=== PATIENT | female | born 1960 | race Caucasian/White ===

== ENCOUNTER 2016-07-15 16:12 | Emergency (ER) | payer OTHER ==
[~2016-07-15] VITALS: Ht 170.2 cm; Wt 97.2 kg
[~2016-07-15 16:12] MED LIST: ADVIL200 MG PO; AMOXICILLIN500 MG PO; ATARAX,VISTARIL25 MG PO; BENADRYL ALLERG25 MG PO; BENADRYL50 MG PO; CHERATUSSIN AC473 ML PO; CLONAZEPAM0.5 MG PO; CLONAZEPAM1 MG PO; ELAVIL10 MG PO; FIORICET 50-301 EACH PO; FIORICET,ESG1 TABLET PO; FIORINAL 50-321 EACH PO; FLEXERIL10 MG PO; GABAPENTIN100 MG PO; HYCODAN SYRUP480 ML PO; HYDROCHLOROTHIA25 MG PO; HYDROCODON-ACE1 EAC2; HYDROCODON-ACE1 EAC5 PO; HYDROCODON-ACE1 EAC7 PO; IBUPROFEN600 MG PO; KEFLEX500 MG PO; KLONOPIN0.5 MG PO; KLONOPIN1 MG PO; KLONOPIN2 MG; LEVOTHYROXINE150 MCG PO; LYRICA75 MG PO; MECLIZINE HCL12.5 M1 PO; MOTRIN400 MG PO; MOTRIN600 MG PO; MOTRIN800 MG PO; NAPROSYN500 MG PO; NORCO 10/3251 TABLET PO; NORCO 5/3251 TABLET PO; OMEPRAZOLE40 M1 PO; ONDANSETRON ODT4 MG PO; OXAYDO5 MG PO; OXYCODONE HCL5 MG PO; PERCOCET 5/31 TABLET PO; PHENERGAN25 MG PR; PLAVIX75 MG PO; PRAVASTATIN SOD40 MG PO; PREDNISONE20 MG PO; PROMETHAZINE HC25 M1 PO; PROZAC40 MG PO; SEROQUEL XR400 MG PO; SEROQUEL400 MG PO; SYNTHROID137 MCG PO; SYNTHROID75 MCG PO; TESSALON200 MG PO; TIROSINT150 MCG PO; TYLENOL REGULA325 MG PO; VENTOLIN HFA18 GM IH; VIBRAMYCIN100 MG PO; VISTARIL50 MG PO; XANAX0.5 MG PO; XARELTO10 MG PO; XARELTO20 MG PO; ZOFRAN4 MG PO
[2016-07-15 18:01] LABS: HEMATOCRIT 40.2 % (36.0-46.0); MCH 29.2 PG (29.0-34.0); MCHC 33.8 G/DL (30.0-36.0); MCV 86.5 FL (83-99); MEAN PLAT.VOLUME 10.8 uM^3 (9.5-12.4); PLATELET COUNT 225 K/uL (156-360); RBC DIS.WIDTH-CV 15.5 % (11.8-14.6); RBC DIS.WIDTH-SD 48.5 % (39-53); RED BLOOD COUNT 4.65 M/uL (3.80-5.20); WHITE BLOOD COUNT 8.5 K/uL (4.1-10.2)
[2016-07-15 18:13] LABS: CHLORIDE 111 mEq/L (99-109); POTASSIUM 3.9 mEq/L (3.7-5.4); SODIUM 142 mEq/L (136-147)
[2016-07-15 18:15] LABS: D-DIMER ELISA 0.29 mg/L FEU (< 0.57); GLUCOSE 95 mg/dL (70-99); PROTHROMBIN TIME 10.6 (9.2-11.2); PTT 25.4 (25-32)
[2016-07-15 18:17] LABS: ANION GAP 9 MEQ/L (2-14)
[2016-07-15 18:19] LABS: GFR ESTIMATE (CALCULATED) > 59 mL/min/
[2016-07-15 18:20] LABS: UREA NITROGEN (BUN) 17 mg/dL (9-23)
[2016-07-15 19:23] LABS: CREATINE KINASE 71 IU/L (1-294)
[2016-07-15] MEDS ORDERED: VIBRAMYCIN100 MG PO (19:38)
[2016-07-15 20:00] VITALS: BP 157/88
== END 2016-07-15 20:00 | disposition home or self-care (01) ==
LOC: EME 16:12
PROVIDERS: Physician Assistant
DX: M79.605 Pain in left leg (principal); L03.116 Cellulitis of left lower limb; Z91.19 Patient's noncompliance with other medical treatment and regimen; F41.9 Anxiety disorder, unspecified; I10 Essential (primary) hypertension; E07.9 Disorder of thyroid, unspecified; Z86.718 Personal history of other venous thrombosis and embolism; F17.200 Nicotine dependence, unspecified, uncomplicated
CPT/HCPCS: 80048; 82550; 85027; 85379; 85610; 85730; 93005; 93971; 99281; 99284; J3010

== ENCOUNTER 2016-09-29 12:43 | Emergency (ER) | payer OTHER ==
[~2016-09-29] VITALS: Ht 170.2 cm; Wt 100.0 kg
[2016-09-29] MEDS ORDERED: PEN-VEE K,VEET500 MG PO (13:08)
[2016-09-29] MEDS ORDERED: ZOFRAN ODT4 MG PO (13:22)
[2016-09-29] MEDS ORDERED: PERCOCET 5/31 TABLET PO (13:22)
[2016-09-29 14:06] VITALS: BP 128/77
== END 2016-09-29 14:22 | disposition home or self-care (01) ==
LOC: EME 12:43
DX: K03.81 Cracked tooth (principal); I10 Essential (primary) hypertension; Z86.718 Personal history of other venous thrombosis and embolism; Z72.0 Tobacco use
CPT/HCPCS: 99281; 99283

== ENCOUNTER 2016-10-05 18:04 | Inpatient (IN) | payer OTHER ==
[~2016-10-05] VITALS: Ht 170.2 cm; Wt 99.5 kg
[~2016-10-05 18:04] MED LIST changes: +PEN-VEE K,VEET500 MG PO; +ZOFRAN ODT4 MG PO
[2016-10-05 18:31] LABS: HEMATOCRIT 40.4 % (36.0-46.0); MCH 28.8 PG (29.0-34.0); MCHC 32.2 G/DL (30.0-36.0); MCV 89.4 FL (83-99); MEAN PLAT.VOLUME 9.8 uM^3 (9.5-12.4); PLATELET COUNT 264 K/uL (156-360); RBC DIS.WIDTH-CV 12.6 % (11.8-14.6); RBC DIS.WIDTH-SD 41.4 % (39-53); RED BLOOD COUNT 4.52 M/uL (3.80-5.20)
[2016-10-05 18:44] LABS: CHLORIDE 112 mEq/L (99-109); POTASSIUM 3.5 mEq/L (3.7-5.4); SODIUM 140 mEq/L (136-147)
[2016-10-05 18:47] LABS: GLUCOSE 155 mg/dL (70-99)
[2016-10-05 18:48] LABS: ANION GAP 10 MEQ/L (2-14); TOTAL BILIRUBIN 0.2 mg/dL (0.0-1.0)
[2016-10-05 18:49] LABS: SERUM ETHYL ALCOHOL < 10 mg/dL
[2016-10-05 18:50] LABS: GFR ESTIMATE (CALCULATED) > 59 mL/min/
[2016-10-05 18:51] LABS: ALKALINE PHOSPHATASE 80 IU/L (3-129)
[2016-10-05 18:52] LABS: UREA NITROGEN (BUN) 25 mg/dL (9-23)
[2016-10-05 18:54] LABS: SALICYLATE < 5.0 MG/DL (15-30)
[2016-10-05 19:30] LABS: ADD MIUA? NO; BILIRUBIN NEGATIVE; BLOOD NEGATIVE; COLOR YELLOW ((YELLOW)); GLUCOSE (STRIP) NEGATIVE; KETONES NEGATIVE; LEUKOCYTES NEGATIVE; NITRITE NEGATIVE; PROTEIN (STRIP) NEGATIVE; SPECIFIC GRAVITY 1.021 (1.000-1.030); UROBILINOGEN 0.2 MG/DL (0.2-1.0)
[2016-10-05 19:53] LABS: AMPHETAMINE NEGATIVE (500 ng/mL); BARBITURATES NEGATIVE (200 ng/mL); BENZODIAZEPINES PRESUMPTIVE POSITIVE (150 ng/mL); COCAINE NEGATIVE (150 ng/mL); INTERNAL CONTROLS VALID? YES; METHADONE NEGATIVE (200 ng/mL); METHAMPHETAMINE NEGATIVE (500 ng/mL); OPIATES (MORPHINE) NEGATIVE (100 ng/mL); OXYCODONE NEGATIVE (100 ng/mL); PHENCYCLIDINE NEGATIVE (25 ng/mL); PROPOXYPHENE NEGATIVE (300 ng/mL); THC CANNABINOIDS NEGATIVE (50 ng/mL); TRICYCLIC ANTIDEPRESSANTS NEGATIVE (300 ng/mL)
[2016-10-05 19:59] LABS: ADD MEDTOX COMMENT Y
[2016-10-05 20:25] LABS: BENZODIAZEPINES, URINE SCREEN POSITIVE (200 ng/mL)
[2016-10-05] MEDS ORDERED: CLONAZEPAM1 MG PO (22:43)
[2016-10-05] MEDS ORDERED: LISINOPRIL20 MG PO (22:43)
[2016-10-05] MEDS ORDERED: SIMVASTATIN20 MG PO (22:44)
[2016-10-05] MEDS ORDERED: HYDROXYZINE PAM50 MG PO (22:47)
[2016-10-05] MEDS ORDERED: IBUPROFEN800 MG PO (22:48)
[2016-10-06 01:11] VITALS: BP 122/58
[2016-10-06 07:53] VITALS: BP 112/55
[2016-10-06 15:52] VITALS: BP 117/58
[2016-10-07 08:12] VITALS: BP 143/85
[2016-10-07 15:44] VITALS: BP 140/78
[2016-10-08 07:54] VITALS: BP 117/77
== END 2016-10-08 13:19 | disposition home or self-care (01) | DRG 885 ==
LOC: EME 18:04 → 1WEST 23:44 → EDOF 23:44 → 1WEST 23:44
PROVIDERS: Emergency Medicine
DX: F33.9 Major depressive disorder, recurrent, unspecified (principal); F13.10 Sedative, hypnotic or anxiolytic abuse, uncomplicated; T42.4X2A Poisoning by benzodiazepines, intentional self-harm, initial encounter; F11.10 Opioid abuse, uncomplicated; F41.9 Anxiety disorder, unspecified; I10 Essential (primary) hypertension; E03.9 Hypothyroidism, unspecified; R41.83 Borderline intellectual functioning; G89.29 Other chronic pain; M54.9 Dorsalgia, unspecified; E78.5 Hyperlipidemia, unspecified; G43.909 Migraine, unspecified, not intractable, without status migrainosus; I87.2 Venous insufficiency (chronic) (peripheral); F17.200 Nicotine dependence, unspecified, uncomplicated; Z91.5 Personal history of self-harm; Z86.718 Personal history of other venous thrombosis and embolism; Z91.040 Latex allergy status; Z88.0 Allergy status to penicillin; Z79.01 Long term (current) use of anticoagulants
CPT/HCPCS: 80053; 81003; 84999; 85027; 90837; 93005; 93971; 97150 GO; 97165 GO; 99281; 99285; G0480; J7030; Q0177

== ENCOUNTER 2016-11-02 17:52 | Emergency (ER) | payer OTHER ==
[~2016-11-02] VITALS: Ht 170.2 cm; Wt 101.5 kg
[~2016-11-02 17:52] MED LIST changes: +HYDROXYZINE PAM50 MG PO; +IBUPROFEN800 MG PO; +LISINOPRIL20 MG PO; +SIMVASTATIN20 MG PO
[2016-11-02] MEDS ORDERED: VENTOLIN HFA18 GM IH (19:08)
[2016-11-02] MEDS ORDERED: TRAMADOL HCL50 MG PO (19:08)
[2016-11-02 19:20] VITALS: BP 128/81
== END 2016-11-02 19:20 | disposition home or self-care (01) ==
LOC: EME 17:52
DX: K08.89 Other specified disorders of teeth and supporting structures (principal); F17.200 Nicotine dependence, unspecified, uncomplicated; J20.9 Acute bronchitis, unspecified
CPT/HCPCS: 94664; 99281; 99284

== ENCOUNTER 2016-11-03 18:07 | Emergency (ER) | payer OTHER ==
[~2016-11-03] VITALS: Ht 170.2 cm; Wt 99.1 kg
[~2016-11-03 18:07] MED LIST changes: +TRAMADOL HCL50 MG PO
[2016-11-03 22:59] VITALS: BP 141/73
== END 2016-11-03 23:00 | disposition home or self-care (01) ==
LOC: EME 18:07
DX: S09.90XA Unspecified injury of head, initial encounter (principal); S90.32XA Contusion of left foot, initial encounter; Y04.2XXA Assault by strike against or bumped into by another person, initial encounter; Y07.03 Male partner, perpetrator of maltreatment and neglect; E78.5 Hyperlipidemia, unspecified; I10 Essential (primary) hypertension; F17.200 Nicotine dependence, unspecified, uncomplicated; Z86.718 Personal history of other venous thrombosis and embolism
CPT/HCPCS: 70450; 73630; 99281; 99284

== ENCOUNTER 2016-11-10 14:22 | Inpatient (IN) | payer OTHER ==
[~2016-11-10] VITALS: Ht 170.2 cm; Wt 102.4 kg
[2016-11-10 15:21] LABS: HEMATOCRIT 37.6 % (36.0-46.0); MCHC 33.2 G/DL (30.0-36.0); MCV 87.2 FL (83-99); MEAN PLAT.VOLUME 9.8 uM^3 (9.5-12.4); PLATELET COUNT 261 K/uL (156-360); RBC DIS.WIDTH-CV 13.5 % (11.8-14.6); RBC DIS.WIDTH-SD 43.1 % (39-53); RED BLOOD COUNT 4.31 M/uL (3.80-5.20)
[2016-11-10 15:31] LABS: CHLORIDE 115 mEq/L (99-109); POTASSIUM 3.8 mEq/L (3.7-5.4); SODIUM 145 mEq/L (136-147)
[2016-11-10 15:33] LABS: GLUCOSE 96 mg/dL (70-99)
[2016-11-10 15:34] LABS: ANION GAP 10 MEQ/L (2-14)
[2016-11-10 15:36] LABS: SERUM ETHYL ALCOHOL < 10 mg/dL
[2016-11-10 15:37] LABS: GFR ESTIMATE (CALCULATED) > 59 mL/min/
[2016-11-10 15:39] LABS: UREA NITROGEN (BUN) 21 mg/dL (9-23)
[2016-11-10 15:40] LABS: SALICYLATE < 5.0 MG/DL (15-30)
[2016-11-10 15:50] LABS: ADD MEDTOX COMMENT Y; AMPHETAMINE NEGATIVE (500 ng/mL); BARBITURATES PRESUMPTIVE POSITIVE (200 ng/mL); BENZODIAZEPINES PRESUMPTIVE POSITIVE (150 ng/mL); COCAINE NEGATIVE (150 ng/mL); INTERNAL CONTROLS VALID? YES; METHADONE NEGATIVE (200 ng/mL); METHAMPHETAMINE NEGATIVE (500 ng/mL); OPIATES (MORPHINE) PRESUMPTIVE POSITIVE (100 ng/mL); OXYCODONE NEGATIVE (100 ng/mL); PHENCYCLIDINE NEGATIVE (25 ng/mL); PROPOXYPHENE NEGATIVE (300 ng/mL); THC CANNABINOIDS NEGATIVE (50 ng/mL); TRICYCLIC ANTIDEPRESSANTS NEGATIVE (300 ng/mL)
[2016-11-10] MEDS ORDERED: BUTALB-APAP-CA1 EACH PO (16:59)
[2016-11-10 17:19] LABS: BENZODIAZEPINES, URINE SCREEN POSITIVE (200 ng/mL); OPIATES QUANTITATIVE VALUE 0 NG/ML
[2016-11-10 17:41] VITALS: BP 137/83
[2016-11-11 07:50] VITALS: BP 148/90
[2016-11-11 15:36] VITALS: BP 153/76
[2016-11-12 08:28] VITALS: BP 130/72
[2016-11-12 15:28] VITALS: BP 142/57
[2016-11-13 07:36] VITALS: BP 135/82
[2016-11-13 15:29] VITALS: BP 132/66
[2016-11-14 07:33] VITALS: BP 107/60
[2016-11-14 15:44] VITALS: BP 132/62
[2016-11-15 07:54] VITALS: BP 105/64
[2016-11-15] MEDS ORDERED: DIVALPROEX SOD250 MG PO (09:28)
[2016-11-15] MEDS ORDERED: TRAZODONE HCL50 MG PO (09:28)
[2016-11-15] MEDS ORDERED: FLUOXETINE HCL20 MG PO (09:28)
== END 2016-11-15 12:45 | disposition home or self-care (01) | DRG 881 ==
LOC: EME 14:22 → 1WEST 16:10 → EDOF 16:10 → 1WEST 17:26
PROVIDERS: Emergency Medicine
DX: F32.9 Major depressive disorder, single episode, unspecified (principal); F13.20 Sedative, hypnotic or anxiolytic dependence, uncomplicated; F20.9 Schizophrenia, unspecified; R45.851 Suicidal ideations; F43.20 Adjustment disorder, unspecified; F70 Mild intellectual disabilities; E03.9 Hypothyroidism, unspecified; I10 Essential (primary) hypertension; Z86.718 Personal history of other venous thrombosis and embolism; Z59.0 Homelessness; F39 Unspecified mood [affective] disorder
CPT/HCPCS: 73610; 80048; 84999; 85027; 90837; 93971; 94640; 94640 76; 97150 GO; 97165 GO; 99202; 99281; 99285; G0480; Q0177

== ENCOUNTER 2017-01-11 16:25 | Day surgery (SDC) | payer OTHER ==
[~2017-01-11] VITALS: Ht 170.2 cm; Wt 101.3 kg
[~2017-01-11 16:25] MED LIST changes: +BUTALB-APAP-CA1 EACH PO; +DIVALPROEX SOD250 MG PO; +FLUOXETINE HCL20 MG PO; +TRAZODONE HCL50 MG PO
[2017-01-11 17:04] LABS: BASOPHIL COUNT 0.1 K/uL (0-0.1); EOSINOPHIL (%) 11.9 % (0-5); EOSINOPHIL COUNT 1.1 K/uL (0-0.3); HEMATOCRIT 41.2 % (36.0-46.0); IMMATURE GRANULOCYTE (%) 0.2 % (0.0-0.7); INSTRUMENT ABS NEUTROPHIL CT 3.7 K/uL; LYMPHOCYTE COUNT 3.5 K/uL (1.0-2.8); MCH 28.4 PG (29.0-34.0); MCHC 31.8 G/DL (30.0-36.0); MCV 89.2 FL (83-99); MEAN PLAT.VOLUME 9.9 uM^3 (9.5-12.4); MONOCYTE (%) 6.2 % (3-12); MONOCYTE COUNT 0.6 K/uL (0-0.8); NEUTROPHIL (%) 41.4 % (45-76); NEUTROPHIL COUNT 3.7 K/uL (1.8-6.4); PLATELET COUNT 239 K/uL (156-360); RBC DIS.WIDTH-CV 13.6 % (11.8-14.6); RBC DIS.WIDTH-SD 44.3 % (39-53); RED BLOOD COUNT 4.62 M/uL (3.80-5.20); WHITE BLOOD COUNT 8.9 K/uL (4.1-10.2)
[2017-01-11 17:12] LABS: CHLORIDE 110 mEq/L (99-109); POTASSIUM 4.6 mEq/L (3.7-5.4); SODIUM 144 mEq/L (136-147)
[2017-01-11 17:14] LABS: GLUCOSE 92 mg/dL (70-99)
[2017-01-11 17:15] LABS: ANION GAP 10 MEQ/L (2-14)
[2017-01-11 17:18] LABS: GFR ESTIMATE (CALCULATED) > 59 mL/min/
[2017-01-11 17:19] LABS: UREA NITROGEN (BUN) 14 mg/dL (9-23)
[2017-01-11] MEDS ORDERED: DIVALPROEX SOD125 M1 PO (23:32)
[2017-01-12 01:30] VITALS: BP 112/70
[2017-01-12 09:30] VITALS: BP 111/60
[2017-01-12 11:10] VITALS: BP 99/60
[2017-01-12] MEDS ORDERED: LEVOTHYROXINE150 MCG PO (11:38)
[2017-01-12] MEDS ORDERED: SIMVASTATIN20 MG PO (11:38)
[2017-01-12] MEDS ORDERED: VENTOLIN HFA18 GM IH (11:38)
== END 2017-01-12 15:20 | disposition home or self-care (01) ==
LOC: EME → EDBD 16:25 → EME 16:25 → SDC 22:09 → 2SOUTH 23:01 → 5WEST 23:01
PROVIDERS: Emergency Medicine
PROC: 0DC58ZZ Extirpation of Matter from Esophagus, Via Natural or Artificial Opening Endoscopic (ICD-10-PCS; principal; 2017-01-11)
DX: T18.128A Food in esophagus causing other injury, initial encounter (principal); K21.9 Gastro-esophageal reflux disease without esophagitis; I10 Essential (primary) hypertension; E78.5 Hyperlipidemia, unspecified; J44.9 Chronic obstructive pulmonary disease, unspecified; F41.8 Other specified anxiety disorders; E03.9 Hypothyroidism, unspecified; Z79.01 Long term (current) use of anticoagulants; K44.9 Diaphragmatic hernia without obstruction or gangrene; F79 Unspecified intellectual disabilities; F31.9 Bipolar disorder, unspecified; Z86.718 Personal history of other venous thrombosis and embolism; Z83.3 Family history of diabetes mellitus; Z82.49 Family history of ischemic heart disease and other diseases of the circulatory system
CPT/HCPCS: 70360; 71250; 74220; 80048; 85025; 99281; 99285; C9113; G0378; J0330; J1200; J1885; J2405; J2765; J3010; J7030

== ENCOUNTER 2017-02-16 14:00 | Emergency (ER) | payer OTHER ==
[~2017-02-16] VITALS: Ht 170.2 cm; Wt 105.7 kg
[~2017-02-16 14:00] MED LIST changes: +DIVALPROEX SOD125 M1 PO
[2017-02-16] MEDS ORDERED: ULTRAM50 MG PO (16:19)
[2017-02-16 16:49] VITALS: BP 151/94
== END 2017-02-16 16:49 | disposition home or self-care (01) ==
LOC: EME 14:00
DX: M79.89 Other specified soft tissue disorders (principal); M79.662 Pain in left lower leg; Z86.718 Personal history of other venous thrombosis and embolism; I10 Essential (primary) hypertension; E78.5 Hyperlipidemia, unspecified; E07.9 Disorder of thyroid, unspecified; K21.9 Gastro-esophageal reflux disease without esophagitis; Z79.01 Long term (current) use of anticoagulants; F17.200 Nicotine dependence, unspecified, uncomplicated
CPT/HCPCS: 93971; 99281; 99284; J2270

== ENCOUNTER 2017-02-18 14:46 | Emergency (ER) | payer OTHER ==
[~2017-02-18] VITALS: Ht 170.2 cm; Wt 106.0 kg
[~2017-02-18 14:46] MED LIST changes: +ULTRAM50 MG PO
[2017-02-18 15:33] LABS: HEMATOCRIT 37.8 % (36.0-46.0); MCH 28.7 PG (29.0-34.0); MCHC 33.1 G/DL (30.0-36.0); MCV 86.9 FL (83-99); MEAN PLAT.VOLUME 10.4 uM^3 (9.5-12.4); PLATELET COUNT 233 K/uL (156-360); RBC DIS.WIDTH-CV 13.7 % (11.8-14.6); RBC DIS.WIDTH-SD 43.1 % (39-53); RED BLOOD COUNT 4.35 M/uL (3.80-5.20); WHITE BLOOD COUNT 6.6 K/uL (4.1-10.2)
[2017-02-18 15:44] LABS: CHLORIDE 113 mEq/L (99-109); POTASSIUM 3.8 mEq/L (3.7-5.4); SODIUM 144 mEq/L (136-147)
[2017-02-18 15:46] LABS: GLUCOSE 103 mg/dL (70-99)
[2017-02-18 15:47] LABS: ANION GAP 7 MEQ/L (2-14)
[2017-02-18 15:50] LABS: GFR ESTIMATE (CALCULATED) > 59 mL/min/
[2017-02-18 15:51] LABS: UREA NITROGEN (BUN) 17 mg/dL (9-23)
[2017-02-18] MEDS ORDERED: ACETAMINOPHEN325 M3 PO (18:09)
[2017-02-18 18:18] VITALS: BP 132/89
== END 2017-02-18 18:19 | disposition home or self-care (01) ==
LOC: EME 14:46
PROVIDERS: Nurse Practitioner Family
DX: M19.91 Primary osteoarthritis, unspecified site (principal); I10 Essential (primary) hypertension; E78.5 Hyperlipidemia, unspecified; G43.909 Migraine, unspecified, not intractable, without status migrainosus; F17.200 Nicotine dependence, unspecified, uncomplicated; Z86.718 Personal history of other venous thrombosis and embolism; Z90.710 Acquired absence of both cervix and uterus; Z91.040 Latex allergy status; Z88.5 Allergy status to narcotic agent; Z88.8 Allergy status to other drugs, medicaments and biological substances; Z88.0 Allergy status to penicillin; Z88.6 Allergy status to analgesic agent; Z91.048 Other nonmedicinal substance allergy status; Z91.09 Other allergy status, other than to drugs and biological substances; Z88.7 Allergy status to serum and vaccine
CPT/HCPCS: 73564; 73590; 73630; 80048; 85027; 99281; 99282; J3010

== ENCOUNTER 2017-08-16 10:02 | Emergency (ER) | payer OTHER ==
[~2017-08-16] VITALS: Ht 170.2 cm; Wt 101.0 kg
[~2017-08-16 10:02] MED LIST changes: +ACETAMINOPHEN325 M3 PO
[2017-08-16 10:42] LABS: HEMATOCRIT 42.2 % (36.0-46.0); HEMOGLOBIN 14.3 G/DL (11.9-15.5); MCH 30.3 PG (29.0-34.0); MCHC 33.9 G/DL (30.0-36.0); MCV 89.4 FL (83-99); PLATELET COUNT 173 K/uL (156-360); RBC DIS.WIDTH-CV 13.2 % (11.8-14.6); RBC DIS.WIDTH-SD 43.6 % (39-53); RED BLOOD COUNT 4.72 M/uL (3.80-5.20); WHITE BLOOD COUNT 5.1 K/uL (4.1-10.2)
[2017-08-16 10:54] LABS: CHLORIDE 109 mEq/L (99-109); POTASSIUM 4.1 mEq/L (3.7-5.4); SODIUM 142 mEq/L (136-147)
[2017-08-16 10:56] LABS: GLUCOSE 105 mg/dL (70-99)
[2017-08-16 11:00] LABS: CREATININE 0.7 mg/dL (0.6-1.3); GFR ESTIMATE (CALCULATED) > 59 mL/min/; UREA NITROGEN (BUN) 15 mg/dL (9-23)
[2017-08-16] MEDS ORDERED: PREDNISONE20 MG PO (13:03)
[2017-08-16] MEDS ORDERED: LEVAQUIN750 MG PO (13:03)
[2017-08-16] MEDS ORDERED: ZOFRAN ODT4 MG PO (13:03)
[2017-08-16] MEDS ORDERED: ROBITUSSIN NIG237 ML PO (13:03)
[2017-08-16] MEDS ORDERED: BENTYL20 MG PO (13:03)
[2017-08-16 13:17] VITALS: BP 139/83
== END 2017-08-16 13:17 | disposition home or self-care (01) ==
LOC: EME 10:02
DX: J18.9 Pneumonia, unspecified organism (principal); R11.2 Nausea with vomiting, unspecified; R19.7 Diarrhea, unspecified; Z16.30 Resistance to unspecified antimicrobial drugs; F17.200 Nicotine dependence, unspecified, uncomplicated; Z71.6 Tobacco abuse counseling; I10 Essential (primary) hypertension; E78.5 Hyperlipidemia, unspecified; K21.9 Gastro-esophageal reflux disease without esophagitis; Z79.01 Long term (current) use of anticoagulants; F41.9 Anxiety disorder, unspecified; Z86.718 Personal history of other venous thrombosis and embolism; Z88.0 Allergy status to penicillin; Z91.040 Latex allergy status; Z88.8 Allergy status to other drugs, medicaments and biological substances
CPT/HCPCS: 71046; 80048; 85027; 87502; 94640; 99281; 99284; J7512

== ENCOUNTER 2017-12-21 21:13 | Inpatient (IN) | payer OTHER ==
[~2017-12-21] VITALS: Ht 170.2 cm; Wt 103.7 kg
[~2017-12-21 21:13] MED LIST changes: +BENTYL20 MG PO; +LEVAQUIN750 MG PO; +ROBITUSSIN NIG237 ML PO
[2017-12-21 21:59] LABS: HEMATOCRIT 42.2 % (36.0-46.0); HEMOGLOBIN 14.1 G/DL (11.9-15.5); MCH 30.7 PG (29.0-34.0); MCHC 33.4 G/DL (30.0-36.0); MCV 91.7 FL (83-99); PLATELET COUNT 308 K/uL (156-360); RBC DIS.WIDTH-SD 46.8 % (39-53); WHITE BLOOD COUNT 11.2 K/uL (4.1-10.2)
[2017-12-21 22:04] LABS: INTER. NORMALIZED RATIO 1.1
[2017-12-21 22:06] LABS: PTT 31.7 SEC (25-37)
[2017-12-21 22:16] LABS: ALBUMIN 4.4 g/dL (3.2-4.8)
[2017-12-21 22:17] LABS: CHLORIDE 112 mEq/L (99-109); POTASSIUM 3.5 mEq/L (3.7-5.4); SODIUM 147 mEq/L (136-147)
[2017-12-21 22:19] LABS: GLUCOSE 114 mg/dL (70-99); TOTAL PROTEIN 7.2 g/dL (6.4-8.3)
[2017-12-21 22:21] LABS: TOTAL BILIRUBIN 0.2 mg/dL (0.0-1.0)
[2017-12-21 22:22] LABS: SERUM ETHYL ALCOHOL < 10 mg/dL
[2017-12-21 22:23] LABS: ALKALINE PHOSPHATASE 117 IU/L (3-129); CREATININE 0.8 mg/dL (0.6-1.3); GFR ESTIMATE (CALCULATED) > 59 mL/min/
[2017-12-21 22:24] LABS: AST (GOT) 14 IU/L (2-34)
[2017-12-21 22:25] LABS: UREA NITROGEN (BUN) 25 mg/dL (9-23)
[2017-12-21 22:26] LABS: ALT (GPT) 14 IU/L (3-49); SALICYLATE < 5.0 MG/DL (15-30)
[2017-12-21 22:27] LABS: ACETAMINOPHEN (TYLENOL) 15 mcg/mL (10-30)
[2017-12-21 22:35] LABS: AMPHETAMINE NEGATIVE (500 ng/mL); BENZODIAZEPINES PRESUMPTIVE POSITIVE (150 ng/mL); COCAINE NEGATIVE (150 ng/mL); METHAMPHETAMINE NEGATIVE (500 ng/mL); OPIATES (MORPHINE) NEGATIVE (100 ng/mL); PHENCYCLIDINE NEGATIVE (25 ng/mL); THC CANNABINOIDS NEGATIVE (50 ng/mL); TRICYCLIC ANTIDEPRESSANTS NEGATIVE (300 ng/mL)
[2017-12-21 22:36] LABS: BARBITURATES PRESUMPTIVE POSITIVE (200 ng/mL); BUPRENORPHINE NEGATIVE (10 ng/mL); METHADONE NEGATIVE (200 ng/mL); OXYCODONE NEGATIVE (100 ng/mL); PROPOXYPHENE NEGATIVE (300 ng/mL)
[2017-12-21 23:08] LABS: BENZODIAZEPINES, URINE SCREEN Negative (200 ng/mL)
[2017-12-22 01:04] LABS: ACETAMINOPHEN (TYLENOL) < 10 mcg/mL (10-30); SALICYLATE < 5.0 MG/DL (15-30)
[2017-12-22 14:34] VITALS: BP 132/70
[2017-12-22 14:40] VITALS: BP 132/70
[2017-12-22 16:38] VITALS: BP 132/70
[2017-12-23 07:54] VITALS: BP 100/47
[2017-12-23 16:28] VITALS: BP 110/73
[2017-12-24 07:47] VITALS: BP 112/55
[2017-12-24 15:24] VITALS: BP 87/53
[2017-12-25 07:59] VITALS: BP 114/60
[2017-12-25 15:30] VITALS: BP 161/70
[2017-12-25 18:56] VITALS: BP 131/69
[2017-12-26] MEDS ORDERED: ARIPIPRAZOLE2 MG PO (09:21)
[2017-12-26 09:29] VITALS: BP 135/65
== END 2017-12-26 13:00 | disposition home or self-care (01) | DRG 881 ==
LOC: EME 21:13 → EDOF 12-22 12:49 → 1WEST 12-22 12:49 → ENRESERV 12-22 14:00 → 1WEST 12-22 14:26
PROVIDERS: Emergency Medicine
DX: F32.9 Major depressive disorder, single episode, unspecified (principal); F41.9 Anxiety disorder, unspecified; R41.83 Borderline intellectual functioning; T39.1X2A Poisoning by 4-Aminophenol derivatives, intentional self-harm, initial encounter; K21.9 Gastro-esophageal reflux disease without esophagitis; I10 Essential (primary) hypertension; E78.5 Hyperlipidemia, unspecified; G43.909 Migraine, unspecified, not intractable, without status migrainosus; F17.200 Nicotine dependence, unspecified, uncomplicated; F11.10 Opioid abuse, uncomplicated; F13.10 Sedative, hypnotic or anxiolytic abuse, uncomplicated; Z86.718 Personal history of other venous thrombosis and embolism; Z79.01 Long term (current) use of anticoagulants; Z91.040 Latex allergy status; Z88.0 Allergy status to penicillin; Z91.19 Patient's noncompliance with other medical treatment and regimen; Z88.7 Allergy status to serum and vaccine
CPT/HCPCS: 80053; 84999; 85027; 85610; 85730; 90837; 93005; 97150 GO; 97165 GO; 99281; 99285; G0480; Q0177